=== PATIENT | male | born 1945 | race Caucasian/White ===

== ENCOUNTER 2020-03-30 16:35 | Emergency (ER) | payer MEDICARE, BC ==
[2020-03-30 17:04] LABS: #Basophils 0.1 thou/uL (0.0-0.2); #Eosinphils 0.1 thou/uL (0.0-0.7); #Lymphocytes 0.4 thou/uL (1.20-3.40); #Monocytes 0.5 thou/uL (0.11-0.59); #Neutrophils 3.2 thou/uL (1.40-6.50); %Basophils 1.3 % (0.0-1.0); %Neutrophils 74.7 % (42.0-75.0); Hemoglobin 14.3 g/dL (14.0-18.0); Mean Corpuscular HGB CONC 31.4 g/dL (32.0-36.0); Mean Corpuscular Hemoglobin 31.7 pg (27.0-31.0); Mean Platelet Volume 6.6 fL (7.4-10.4); Platelet Count 161 thou/uL (130-400); RBC Distribution Width 12.7 % (11.5-14.5); Red Blood Cell (RBC) Count 4.51 mill/uL (4.70-6.10); White Blood Cell (WBC) Count 4.3 thou/uL (4.8-10.8)
[2020-03-30 17:20] LABS: ALT (SGPT) 21 U/L (8-55); AST (SGOT) 16 U/L (5-34); Albumin 4.6 g/dL (3.4-4.8); Alkaline Phosphatase 73 U/L (40-110); Anion Gap 13 mmol/L (10-20); BUN (Urea Nitrogen) 15 mg/dL (8.4-25.7); Bilirubin, Total 0.8 mg/dL (0.2-1.2); Calc. Creatinine Clearance 0 mL/min (70-130); Calcium 9.3 mg/dL (7.8-10.44); Carbon Dioxide 28 mmol/L (23-31); Chloride 106 mmol/L (98-107); Estimated GFR-MDRD 58; Globulin 2.6 g/dL (2.4-3.5); Glucose 102 mg/dL (83-110); Potassium 3.6 mmol/L (3.5-5.1); Protein, Total 7.2 g/dL (5.8-8.1); Sodium 143 mmol/L (136-145)
[2020-03-30] MEDS ORDERED: Aspirin Chewable 81 MG TAB ONE (17:23)
--- NOTE | 2020-03-30 18:02 | CT ---
Exam: CTA chest with 3-D rendering: CTA abdomen with 3-D rendering: HISTORY: Chest pain COMPARISON: None TECHNIQUE: CT angiogram of the thoracic and abdominal aorta performed in the axial plane. Three-dimen sional reformatted images are submitted for interpretation. FINDINGS: Chest CT: Mediastinum: No mass, lymphadenopathy or hematoma Heart: Normal heart size. No significant pericardial fluid. Coronary arteries: Scattered atherosclerosis Trachea and central bronchi: Patent Pleural spaces: No pleural effusion. Right lung: Minimal scarring and atelectasis. Left lung: Minimal scarring and atelectasis Pneumothorax: None Abdomen CT: Gallbladder: Multiple gallstones. No evidence of cholecystitis Portal vein: Patent Solid organs:There is diffuse hypoattenuation of the liver suggesting hepatic steatosis. There is a c yst in the left hepatic lobe measuring 2.0 x 1.7 cm. Appropriate arterial phase enhancement of the adrenal glands, spleen and pancreas. There is mild atrophy of the pancreas. Kidneys: Symmetric enhancement. No obstructive uropathy. Subcentimeter hypodensities in the left and right renal cortex are too small to characterize. There is a 1.3 cm cyst in the mid left renal cortex. Mesentery: There is a soft tissue mass in the periportal region, posterior to the portal vein and ant erior to the inferior vena cava measuring 4.1 x 3.3 cm. Correlation made with a CT used for PET attenuation correction and 05/13/2016 demonstrates a similar soft tissue density. Patient has a histo ry of lymphoma. Findings may represent recurrence versus incomplete remission. There is stranding of the central abdominal mesentery with mildly enlarged mesenteric lymph nodes. Lymphadenopathy and s tranding is similar to the previous examination. Alimentary canal: Limited evaluation by the lack of oral contrast. No evidence of a bowel obstruction . Normal ileocecal junction. Scattered fecal material in a nondistended, nondilated colon. Diverticulosis is noted. No diverticulitis. Normal caliber appendix Osseous structures: No lytic or blastic lesions. There is diffuse bone demineralization. CT ANGIOGRAM: No evidence of aneurysm or dissection with regards to the thoracic and abdominal aorta. Appropriate e nhancement and luminal diameter the celiac artery origin, superior mesenteric artery origin, inferior mesenteric artery origin. Solitary left and right renal arteries are patent. Aortic bifurcat ion and visualized iliac arteries are patent IMPRESSION: 1. No evidence of aneurysm or dissection 2. Abnormal soft tissue mass as described above. 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 There is additional stranding of the mesentery in lymphadenopathy is similar to the previous examination. Findings may represent chronic change given that there was no re ported hypermetabolic activity in the mesentery Transcribed Date/Time: 03/30/2020 6:26 PM
--- NOTE | 2020-03-30 18:39 | RAD ---
AP CHEST: 03/30/20 HISTORY: Dyspnea. Lung gross are clear. No infiltrate. Avascular markings are normal with no evidence of vascular prabhjot estion or edema. Heart and mediastinum unremarkable. A Mediport catheter has tip overlying the SVC. IMPRESSION: No acute process. POS: [facility]
== END 2020-03-30 19:00 | disposition home or self-care (01) ==
LOC: BURERS 16:35
DX: R07.9 Chest pain, unspecified (principal); L02.91 Cutaneous abscess, unspecified; I10 Essential (primary) hypertension
CPT/HCPCS: 71045; 71275; 72191; 74175; 80053; 83880; 84484; 85025; 93005